=== PATIENT | female | born 1960 | race Caucasian/White ===

== ENCOUNTER 2024-08-20 16:37 | Emergency (ER) | payer OTHER, SELFPAY ==
[2024-08-20 16:37] VITALS: BP 137/73; PULSE 77; RESP 18; TEMP 36.4; O2SAT 93; BMI 30.7
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
[2024-08-20 17:32] VITALS: BP 113/74; PULSE 74; RESP 18; O2SAT 97
[2024-08-20 17:37] LABS: Basophils # 0.1 10^3/uL (0.0-0.1); Basophils % 0.6 %; Eosinophils # 0.2 10^3/uL (0.0-0.8); Hematocrit 43.1 % (36-47); Lymphocytes # 2.4 10^3/uL (0.8-4.8); Lymphocytes % 30.3 %; Mean Corpuscular HGB Conc 32.5 g/dL (30-55); Mean Corpuscular Hemoglobin 29.4 pg (27-33); Mean Corpuscular Volume 90.4 fl (85-98); Monocytes # 0.7 10^3/uL (0.2-0.9); Monocytes % 9.2 %; Neutrophils # 4.53 10^3/uL (1.8-7.7); Nucleated Red Blood Cells % 0 %; Platelet Count 184 10^3/cmm (157-399); Red Blood Count 4.77 10^6/uL (3.85-5.65); Red Cell Distribution Width 12.7 % (12.1-15.1); White Blood Count 7.95 10^3/uL (3.29-11.43)
[2024-08-20 17:50] LABS: INR 0.87 (0.8-1.2)
[2024-08-20 17:51] LABS: Partial Thromboplastin Time 22.8 SECONDS (23.9-36.7)
[2024-08-20 17:57] LABS: Alanine Aminotransferase 27 U/L (0-33); Albumin Level 4.2 g/dL (3.5-5.2); Alkaline Phosphatase 103 U/L (35-105); Anion Gap 14.7 (5-19); Aspartate Amino Transferase 28 U/L (0-32); Blood Urea Nitrogen 13 mg/dL (8-23); Calcium 8.9 mg/dL (8.5-10.5); Carbon Dioxide 24 mmol/L (22-29); Chloride 102 mmol/L (98-107); Globulin 2.9 g/dL (1.3-4.6); Glomerular Filtration Rate 83.7 mL/min (90-130); Glucose 114 mg/dL (65-115); Osmolality Calculated 285 mOsm/kg (285-295); Potassium 3.7 mmol/L (3.5-5.1); Sodium 137 mmol/L (136-145); Total Bilirubin 0.2 mg/dL (0.15-1.2); Total Protein 7.1 g/dL (6.6-8.7)
[2024-08-20 17:58] LABS: Lactic Sepsis W/Reflex 1.5 mmol/L (0.5-2.2)
[2024-08-20 18:00] VITALS: BP 132/67; PULSE 78; RESP 16; O2SAT 98
[2024-08-20] MEDS: HYDROmorphone 0.5 MG/0.5 ML INJ 1 MG IVP (18:00)
[2024-08-20] MEDS: ceFAZolin 2,000 mg SDV 2000 MG IVP (18:00)
[2024-08-20] MEDS: tetanus-dipt-pertussis 0.5 mL SDV IM (18:00)
[2024-08-20] MEDS: ondansetron 2 mg/ML SDV 2 mL 4 MG IVP (18:01)
[2024-08-20] MEDS: lidocaine 1% 10 ML INJ 20 ML INJECTION (18:17)
[2024-08-20 19:10] VITALS: BP 130/86; PULSE 76; RESP 14; O2SAT 94
== END 2024-08-20 19:07 | disposition home or self-care (01) ==
PROVIDERS: Emergency Provider Emergency Medicine
DX: S61.412A Laceration without foreign body of left hand, initial encounter (principal); S62.307A Unspecified fracture of fifth metacarpal bone, left hand, initial encounter for closed fracture; S20.219A Contusion of unspecified front wall of thorax, initial encounter; V89.2XXA Person injured in unspecified motor-vehicle accident, traffic, initial encounter; Z23 Encounter for immunization
CPT/HCPCS: 36415; 70450; 71250; 72125; 73130; 80053; 83605; 85025; 85610; 85730; 90471; 90715; 96374; 96375; 99285; 99291; J0690; J1171; J2405; J9999